=== PATIENT | female | born 1945 | race Caucasian/White ===

== ENCOUNTER 2019-06-02 14:40 | Outpatient (CLI) | payer MEDICARE, SELFPAY ==
--- NOTE | ~2019-06-02 | MM_ITS ---
EXAMINATION: MM screening [facility] BI w juan HISTORY: Screening mammogram TECHNIQUE: Craniocaudal and mediolateral oblique 3-D tomosynthesis images were obtained and synthetic 2-D images were generated. CAD analysis was submitted and interpreted. COMPARISON: Comparison to multiple prior studies sequentially, with oldest reviewed study dated 01/17. BREAST PARENCHYMAL COMPOSITION: There are scattered areas of fibroglandular density. FINDINGS: There is no evidence of suspicious mass, calcification, or architectural distortion to sugg est malignancy in either breast. There has been no suspicious interval change. IMPRESSION: 1. No mammographic evidence of malignancy. 2. Recommend routine screening mammography in one year. BI-RADS Category 1: Negative Reviewed, dictated and finalized at location A.
== END 2019-06-02 14:41 | disposition home or self-care (01) ==
PROVIDERS: PCP Nurse Practitioner Family; Visit Provider Nurse Practitioner Family
DX: Z12.31 Encounter for screening mammogram for malignant neoplasm of breast (principal)
CPT/HCPCS: 77063; 77067

== ENCOUNTER 2019-06-06 18:41 | Emergency (ER) | payer MEDICARE, SELFPAY ==
--- NOTE | 2019-06-06 18:48 | ED.RECABL ---
HPI - Recheck/Abnormal Lab/Rx General Chief Complaint: Recheck/Abnormal Lab/Rx Stated Complaint: elevated blood pressure Time Seen by Provider: 06/06/19 18:43 Source: patient Mode of arrival: ambulatory Limitations: no limitations History of Present Illness HPI narrative: The pt is a 74 y/o female who presents to the ED c/o elevated BP onset one day ago. She states that she checks her BP every day, and did not check it after taking her medication. She states that yesterday, it was 160 over another value. Pt states that she has a PMHx of HTN, and she takes Lisinopril 10 mg. The pt states that she checked her machine at home and saw her BP was 220/91. She had begun to experience N/V before this. She states that she took 2 of her Lisinopril. She denies CP, GALLEGOS, SOB, fever, and chills. complaint: other (High BP) Description of abnormal result: High blood pressure. This started one day ago. Associated symptoms: nausea and other (Vomiting) Treatments prior to arrival: other (Prescription Lisinopril ) Related Data Home Medications Medication Instructions Recorded Confirmed levothyroxine 75 mcg PO DAILY 06/06/19 lisinopril 10 mg PO BID 06/06/19 Allergies Allergy/AdvReac Type Severity Reaction Status Date / Time ampicillin AdvReac Intermediate RASH/ITCHIN Verified 06/06/19 18:54 G codeine AdvReac Intermediate OUT OF MY Verified 06/06/19 18:54 BODY Review of Systems Review of Systems: All systems reviewed & are unremarkable except as noted in HPI and below Constitutional: Constitutional: Denies chills and Denies fever(s) Cardiovascular: Cardiovascular: Denies chest pain Respiratory: Respiratory: Denies dyspnea Gastrointestinal: Gastrointestinal: Reports nausea and Reports vomiting Neurologic: Denies headache(s) [facility] Past Medical History Medical History (Updated 06/06/19 @ 20:31 by Nicole Davis MD) Asthma Bilateral cataracts Bronchitis Cystocele Fibroids Glaucoma HTN (hypertension) Hyperthyroidism Hypothyroidism Urinary incontinence UTI (urinary tract infection) Surgical History Surgical History (Updated 06/06/19 @ 18:56 by Tong Almanza) H/O lumpectomy H/O right breast biopsy H/O: hysterectomy History of bladder suspension procedure Social History Social History (Updated 06/06/19 @ 18:56 by Tong Almanza) Smoking status: Former smoker Gender identity (if verbalized by the patient): Female Comments PCP: Jennifer Rosales APPLICATION SUPPORT ADMINISTRATOR Exam Const: General: no acute distress and well developed Orientation/consciousness: oriented to person, oriented to place, oriented to time and patient oriented x3 HENMT: Head: normocephalic Ears: external ears normal General nose exam: Normal external nose present Eyes: General: appearance normal, both eyes and all related structures Conjunctivae: conjunctivae normal Neck: Neck: normal visual inspection and full ROM Chest: Chest palpation & inspection: normal inspection of the chest and no tenderness Resp: Effort & Inspection: normal respiratory effort Auscultation: clear to auscultation bilaterally Cardio: Rate: regular rate Rhythm: regular rhythm GI: GI Palp: No abdominal tenderness and Yes Soft to palpation Skin: General skin exam: normal color and turgor normal Neuro: General: oriented to person, oriented to place, oriented to time and patient oriented x3 Cognition (Neuro): normal cognition Extrem: General: normal to inspection, full ROM and no pedal edema Psych: Appearance: grossly normal Mental Status: mental status grossly normal Affect: normal affect Course Reevaluation(s) Reevaluation #1: Patient is feeling fine and is not experiencing N/V at this time. Is comfortable with discharge. Date: 06/06/19 Time: 20:31 Vital Signs Vital signs: Vital Signs Temperature 36.6 C 06/06/19 18:52 Pulse Rate 86 06/06/19 18:52 Respiratory Rate 14 06/06/19 18:52 Blood Pressure 220/113 H 06/06/19 18:52 Pulse Oximet
[2019-06-06 18:52] VITALS: BP 220/113; PULSE 86; RESP 14; TEMP 36.6; O2SAT 100
--- NOTE | 2019-06-06 19:10 | ECG_ITS ---
Measurements Intervals [place] Rate: 81 P: 33 MS: 154 QRS: 25 QRSD: 98 T: 13 QT: 363 QTc: 422 Interpretive Statements SINUS RHYTHM BORDERLINE T WAVE ABNORMALITY- INFERIOR LEADS BASELINE ARTIFACT- I, II, III, AVR, AVL, AVF BORDERLINE ECG Electronically Signed On 06-06-2019 20:15:50 CDT by Ranjit Meyers D.O.
[2019-06-06 19:13] LABS: Basophils Absolute Auto 0.1 K/mm3 (0.0-0.1); Basophils Percent Auto 0.8 % (0.2-1.2); Eosinophils Percent Auto 0.5 % (0-4.4); Hematocrit 39.4 % (37.0-47.0); Hemoglobin 13.1 g/dL (12.0-15.0); Immature Granulocyte Absolute 0.02 K/mm3 (0.00-0.031); Immature Granulocyte Percent A 0.3 % (0-0.5); Lymphocytes Absolute Auto 1.65 K/mm3 (0.9-3.2); Lymphocytes Percent Auto 26.3 % (18.3-44.2); Mean Corpuscular HGB Conc 33.2 g/dl (32-36); Mean Corpuscular Hemoglobin 31.8 pg (26-34); Mean Corpuscular Volume 95.6 fl (80-100); Mean Platelet Volume 10.2 fl (7.4-10.4); Monocytes Absolute Auto 0.5 K/mm3 (0.1-0.6); Neutrophils Percent Auto 64.1 % (45.5-73.1); Platelet Count Result 298 k/mm3 (150-375); Red Blood Count 4.12 M/mm3 (4.2-5.4); Red Cell Distribution Width 12.2 % (11.5-14.5); White Blood Count 6.3 K/mm3 (4.5-10.0)
[2019-06-06 19:37] LABS: Troponin I < 0.012 ng/mL (0.000-0.034)
[2019-06-06 19:48] VITALS: BP 171/76; PULSE 70; RESP 11; O2SAT 99
[2019-06-06 20:05] LABS: Alanine Aminotransferase 23 U/L (4-35); Albumin Level 4.4 g/dL (3.5-5.1); Alkaline Phosphatase 87 U/L (38-126); Aspartate Amino Transferase 31 U/L (14-36); Bilirubin,Total 0.3 mg/dL (0.2-1.3); Blood Urea Nitrogen 9 mg/dL (7-17); Calcium 9.6 mg/dL (8.4-10.2); Carbon Dioxide 30 mmol/L (22-30); Chloride 98 mmol/L (98-107); Estimated CRCL calculation 46 ml/min; Estimated Glomerular Filt Rate > 60; Glucose 109 mg/dL (65-105); Lipase 132 U/L (23-300); Potassium 4.2 mmol/L (3.4-5.0); Sodium 133 mmol/L (137-145)
[2019-06-06 20:40] VITALS: BP 173/83; PULSE 71; RESP 18; TEMP 36.2; O2SAT 100
== END 2019-06-06 20:42 | disposition home or self-care (01) ==
PROVIDERS: Emergency Provider Emergency Medicine; PCP Nurse Practitioner Family
DX: I10 Essential (primary) hypertension (principal); R11.0 Nausea; E03.9 Hypothyroidism, unspecified; H40.9 Unspecified glaucoma; Z87.440 Personal history of urinary (tract) infections; H26.9 Unspecified cataract; Z87.891 Personal history of nicotine dependence; R94.31 Abnormal electrocardiogram [ECG] [EKG]
CPT/HCPCS: 36415; 80053; 83690; 84484; 85025; 93005; 99284

== ENCOUNTER 2020-07-19 08:11 | Outpatient (CLI) | payer MEDICARE, SELFPAY ==
--- NOTE | ~2020-07-19 | MM_ITS ---
EXAMINATION: MM screening [facility] BI w juan HISTORY: Screening TECHNIQUE: Craniocaudal and mediolateral oblique 3-D tomosynthesis images were obtained and synthetic 2-D images were generated. CAD analysis was submitted and interpreted. COMPARISON: Comparison to multiple prior studies sequentially, with oldest reviewed study dated 01/18. BREAST PARENCHYMAL COMPOSITION: There are scattered areas of fibroglandular density. FINDINGS: There are developing skin calcifications in the lower central aspect of the right breast an d lower inner quadrant of the right breast corresponding to focal skin keratosis indicated with radio paque markers. There is no evidence of suspicious mass, calcification, or architectural distortion to suggest malignancy in either breast. There has been no suspicious interval change. IMPRESSION: 1. No mammographic evidence of malignancy. 2. Recommend routine screening mammography in one year. BI-RADS Category 2: Benign finding(s). Reviewed, dictated and finalized at location A.
== END 2020-07-19 08:12 | disposition home or self-care (01) ==
LOC: ANHIMG 08:15
PROVIDERS: PCP Nurse Practitioner Family; Visit Provider Nurse Practitioner Family
DX: Z12.31 Encounter for screening mammogram for malignant neoplasm of breast (principal)
CPT/HCPCS: 77063; 77067

== ENCOUNTER → 2020-09-27 10:55 | Outpatient (CLI) | payer MEDICARE, SELFPAY ==
--- NOTE | ~2020-09-27 | DEXA_ITS ---
Bone Density Report Name: Elham Crane Age: 75 Sex: Female Ethnicity: White Date of : 1945 Indication: postmenopausal; screening for osteoporosis; height loss; hysterectomy; Referring Provider: Bobby, Jennifer Kovacs Study: Bone densitometry was performed. Exam Date: September 27, 2020 Accession number: [id number] Bone Density: Region BMD T-score Z-score Classification AP Spine (L1-L4) 1.107 0.5 3.1 Normal Femoral Neck (Left) 0.743 -1.0 1.2 Normal Total Hip (Left) 0.888 -0.4 1.5 Normal Femoral Neck (Right) 0.767 -0.7 1.4 Normal Total Hip (Right) 0.902 -0.3 1.6 Normal Total Hip Mean 0.895 -0.4 1.6 Normal World Health Organization criteria for BMD impression classify patients as: Normal (T-score at or above -1.0), Osteopenia (T-score between -1.0 and -2.5), or Osteoporosis (T-score at or below -2.5). 10-year Fracture Risk: FRAX not reported because: All T-scores for Spine Total, Hip Total, Femoral Neck at or above -1.0 Previous Exams: Region Exam Age BMD T-score BMD Change BMD Change Date g/cm2 vs Baseline vs Previous AP Spine(L1-L4) 09/27/2020 75 1.107 0.5 0.066* 0.066* 01/07/2007 61 1.041 -0.1 Total Hip(Left) 09/27/2020 75 0.888 -0.4 -0.076* -0.076* 01/07/2007 61 0.964 0.2 Total Hip(Right) 09/27/2020 75 0.902 -0.3 -0.053* -0.053* 01/07/2007 61 0.955 0.1 *Denotes significance at 95% confidence level, LSC for AP Spine = 0.022 g/cm2, LSC for Total Hip = 0.027 g/cm2 Clinical Information Provided by Patient: Has used the following medications: Vitamin D, Calcium, MTV Has the following medical conditions: Hysterectomy Patient maximum height was 62.5 Menopause Age: 48 Drinks caffeinated beverages Onset of menses at age 11 Number of children 2 Impression: The patient has normal bone mass. The BMD for the Total Hip(Left) decreased, changing by -0.076 since the last DXA exam. The BMD for the Total Hip(Right) decreased, changing by -0.053 since the last DXA exam. Discussion: BONE DENSITY IS ABOVE THE MINIMUM DESIRABLE LEVEL AT ALL SKELETAL SITES TESTED. This patient?s bone mineral density is above the minimum desirable level (T-score -1.0 or better) at all sites measured. The patient should follow a healthful lifestyle (good nutrition with adequate calcium and vitamin D, and appropriate weight-bearing exercise). Follow-Up: Consider repeating this study in 3 to 4 years to reas
== END ==
PROVIDERS: PCP Nurse Practitioner Family; Visit Provider Nurse Practitioner Family
DX: Z78.0 Asymptomatic menopausal state (principal)
CPT/HCPCS: 77080

== ENCOUNTER 2021-09-13 11:05 | Outpatient (CLI) | payer MEDICARE, SELFPAY ==
--- NOTE | ~2021-09-13 | MM_ITS ---
EXAMINATION: MM screening [facility] BI w juan HISTORY: Screening TECHNIQUE: Craniocaudal and mediolateral oblique 3-D tomosynthesis images were obtained and synthetic 2-D images were generated. CAD analysis was submitted and interpreted. COMPARISON: Comparison to multiple prior studies sequentially, with oldest reviewed study dated 01/18. BREAST PARENCHYMAL COMPOSITION: There are scattered areas of fibroglandular density. FINDINGS: There is no evidence of suspicious mass, calcification, or architectural distortion to sugg est malignancy in either breast. There has been no suspicious interval change. IMPRESSION: 1. No mammographic evidence of malignancy. 2. Recommend routine screening mammography in one year. BI-RADS Category 1: Negative Reviewed, dictated and finalized at location A.
== END 2021-09-13 11:06 | disposition home or self-care (01) ==
PROVIDERS: PCP Nurse Practitioner Family; Visit Provider Nurse Practitioner Family
DX: Z12.31 Encounter for screening mammogram for malignant neoplasm of breast (principal)
CPT/HCPCS: 77063; 77067

== ENCOUNTER 2022-12-14 13:57 | Outpatient (CLI) | payer MEDICARE, SELFPAY ==
--- NOTE | ~2022-12-14 | MM_ITS ---
EXAMINATION: MM screening [facility] BI w juan HISTORY: Screening mammogram TECHNIQUE: Craniocaudal and mediolateral oblique 3-D tomosynthesis images were obtained and synthetic 2-D images were generated. CAD analysis was submitted and interpreted. COMPARISON: 09/13/2021, 08/05/2020, 06/02/2019 bilateral screening mammogram examinations BREAST PARENCHYMAL COMPOSITION: There are scattered areas of fibroglandular density. FINDINGS: There is no evidence of suspicious mass, calcification, or architectural distortion to sugg est malignancy in either breast. There has been no suspicious interval change. IMPRESSION: 1. No mammographic evidence of malignancy. 2. Recommend routine screening mammography in one year. BI-RADS Category 1: Negative Reviewed, dictated and finalized at location A.
== END 2022-12-14 13:58 | disposition home or self-care (01) ==
PROVIDERS: PCP Nurse Practitioner Family; Visit Provider Nurse Practitioner Family
DX: Z12.31 Encounter for screening mammogram for malignant neoplasm of breast (principal)
CPT/HCPCS: 77063; 77067

== ENCOUNTER 2023-01-08 15:41 | Observation (INO) | payer MEDICARE, SELFPAY ==
[2023-01-08] VITALS (7 sets, daily range): BP systolic 156–218; BP diastolic 79–126; PULSE 78–94; RESP 16–18; TEMP 36.5–36.8; O2SAT 99–100; BMI 27.5
--- NOTE | ~2023-01-08 | MR_ITS ---
MRI of the brain Clinical History: Weakness, incoordination Technique: Axial and sagittal T1-weighted images were acquired. These were followed by axial T2-weigh dorinda, diffusion weighted, gradient, and FLAIR images. Following intravenous administration of 13 cc Mu ltiHance gadolinium, T1-weighted fat-sat imaging was performed in the axial and coronal planes. Findings: There is no acute infarct, intracranial hemorrhage, or mass lesion. There are moderate [place] hayde microvascular ischemic changes in the periventricular white matter bilaterally. Focal chronic lac unar infarcts are noted at the left basal ganglia/external capsule. Ventricles and subarachnoid spaces are minimally prominent. Orbits are unremarkable. Paranasal sinuse s and mastoid air cells are clear. Major intracranial flow voids are intact. Sagittal midline structures are intact. No abnormal postcontrast enhancement identified. IMPRESSION: No intracranial hemorrhage, mass lesion, or acute infarct. Moderate chronic microvascular ischemic changes and chronic lacunar infarcts at the left basal gangli a/external capsule. Reviewed, dictated and finalized at [facility]. IMPRESSION: No intracranial hemorrhage, mass lesion, or acute infarct. Moderate chronic microvascular ischemic changes and chronic lacunar infarcts at the left basal ganglia/external capsule.
--- NOTE | ~2023-01-08 | CT_ITS ---
EXAMINATION: CTA brain carotid DATE: 01/08/2023 17:59 INDICATION: weakness TECHNIQUE: Computed tomographic angiography (CTA) of the head was performed without and with 100 mL O mnipaque-350 intravenous contrast. CTA of the neck was performed with intravenous contrast. Automated exposure control and iterative reconstruction technique were employed. The dose-length product was 1 639.38 mGy-cm. Maximum intensity projection and volume rendered 3D-reconstructions were created by magen murillo technologist on a separate workstation. COMPARISON: None. FINDINGS: CT BRAIN: No acute large vessel infarct, intracranial hemorrhage, mass, or hydrocephalus. Moderate atrophy and chronic white matter change. Atherosclerotic intracranial calcification. Old bilateral lacunar infarc ts. Bilateral lens replacements. CTA HEAD: No large vessel occlusion, aneurysm, high flow vascular malformation, nidus or extravasation. Multifo dorothy mild and moderate stenoses present in the distal left vertebral artery and basilar artery. Hypopl astic/absent intradural segment of the right vertebral artery versus variant termination in a right c erebellar artery. Atherosclerotic calcification in the carotid siphons without significant stenosis. Moderate stenosis in the left A2 segment. Hypoplastic left P1 segment. Absent right P1 segment, with flow provided from the right PCOM. Diminutive caliber posterior cerebral arteries bilaterally. Symmet alfa parenchymal enhancement. Patent cerebral veins. CTA NECK: Aortic arch and proximal great vessels: Mild atherosclerotic calcifications at the visualized aortic arch and proximal great vessels. Right common carotid, carotid bifurcation, and internal carotid artery: Calcified plaque at the bifur cation.There is 0% stenosis of the proximal right internal carotid artery relative to normal distal a rtery lumen diameter (NASCET criteria). Left common carotid, carotid bifurcation, and internal carotid artery: Calcified plaque at the bifurc ation.There is 0% stenosis of the proximal left internal carotid artery relative to normal distal art noah lumen diameter (NASCET criteria). Vertebral arteries: No significant plaque or stenosis. Left vertebral artery is dominant Hypoplastic right vertebral artery with minimal opacification. Other findings: Biapical pleural scar. Dependent atelectasis. Senescent and likely mild interstitial or bronchiolitic change. IMPRESSION: No CT evidence of acute large vessel infarct. No large vessel occlusion. No severe carotid or vertebral stenosis. Reviewed, dictated and finalized at location [facility].
--- NOTE | 2023-01-08 16:03 | ECG_ITS ---
Measurements Intervals [place] Rate: 79 P: 38 NC: 147 QRS: -5 QRSD: 90 T: 3 QT: 386 QTc: 444 Interpretive Statements SINUS RHYTHM COMPARED TO ECG 06/06/2019 18:50:00 NO SIGNIFICANT CHANGES Electronically Signed On 01-09-2023 19:45:29 CDT by Lisbeth Coates M.D.
--- NOTE | 2023-01-08 16:04 | ED.GENADULT ---
HPI - General Adult General Chief complaint: Neuro Symptoms/Deficit <Oxana Oliveira APRN - Last Filed: 01/08/23 16:07> Stated complaint: difficulty with R hand/leg today <Oxana Oliveira APRN - Last Filed: 01/08/23 16:07> Time Seen by Provider: 01/08/23 17:00 <Oxana Oliveira APRN - Last Filed: 01/08/23 16:07> Source: patient <DENISE Cruz Last Filed: 01/08/23 19:59> Mode of arrival: ambulatory <Susana Delatorre PA-C - Last Filed: 01/08/23 19:59> Limitations: no limitations <DENISE Cruz Last Filed: 01/08/23 19:59> History of Present Illness HPI narrative: Elham Crane is a 77 y/o female who presents with reports of noticing she couldn't use her right arm this morning at around 0830, she states she then rested and it got better. She said later in the day her symptoms returned and she had weakness to her right arm and had to drag her right leg. She states the symptoms have since again improved. <Oxana Oliveira APRN - Last Filed: 01/08/23 16:07> Elham Crane is a 77 y/o female who presents with reports of noticing she couldn't use her right arm this morning at around 0830, she states she then rested and it got better. She said later in the day her symptoms returned and she had weakness to her right arm and had to drag her right leg. She states the symptoms have since again improved. Reports symptoms have been intermittent throughout the day. Last known well just before 8:30 AM. Denies any headache, vision changes, dizziness, lightheadedness, chest pain, difficulty breathing, nausea, vomiting, confusion, slurred speech, numbness, tingling. <DENISE Cruz Last Filed: 01/08/23 19:59> Related Data Home medications: Home Medications Medication Instructions Recorded Confirmed lisinopril 10 mg tablet 20 mg PO HS 06/06/19 01/08/23 fenofibrate 160 mg tablet 160 mg PO DAILY 01/08/23 01/08/23 levothyroxine 88 mcg tablet 88 mcg PO QAM 01/08/23 01/08/23 (Synthroid) <Oxana Oliveira, INFECTION CONTROL PREVENTIONIST - Last Filed: 01/08/23 16:07> Allergies/adverse reactions: Allergies Allergy/AdvReac Type Severity Reaction Status Date / Time ampicillin AdvReac Intermediate RASH/ITCHIN Verified 06/06/19 18:54 G codeine AdvReac Intermediate OUT OF MY Verified 06/06/19 18:54 BODY <Oxana Marshall July, INFECTION CONTROL PREVENTIONIST - Last Filed: 01/08/23 16:07> Review of Systems Review of Systems: CONSTITUTIONAL: Denies fever, chills, or sweats. EYES: Denies visual changes. CARDIOVASCULAR: Denies chest pain. RESPIRATORY: Denies dyspnea. GASTROINTESTINAL: Denies abdominal pain, nausea, vomiting. MUSCULOSKELETAL: Denies back pain, joint pain, or myalgia. NEUROLOGIC: See HPI. <Susana Delatorre PA-C - Last Filed: 01/08/23 19:59> All systems reviewed & are unremarkable except as noted in HPI and below <Susana Delatorre PA-C - Last Filed: 01/08/23 19:59> PMFSH Past Medical History Medical History: Medical History (Updated 01/09/23 @ 02:08 by Luís Parekh MD) Asthma Bilateral cataracts Bronchitis Cystocele Fibroids Glaucoma HTN (hypertension) Hyperthyroidism Hypothyroidism Urinary incontinence UTI (urinary tract infection) <Oxana Marshall July, - Last Filed: 01/08/23 16:07> Surgical History Surgical History: Surgical History H/O lumpectomy H/O right breast biopsy H/O: hysterectomy History of bladder suspension procedure <Oxana Marshall July, INFECTION CONTROL PREVENTIONIST - Last Filed: 01/08/23 16:07> Social History Social History: Social History Smoking status: Former smoker Alcohol intake: never Substance use: never Lack of Transportation: No Lack of Food: Never True Current Housing: I Have Housing Concerned About Future Housing: No Difficulty Paying Gas/Electric Bills: No Difficulty Paying for Meds: No Currently Unemployed:
[2023-01-08 16:58] LABS: Basophils Absolute Auto 0.1 K/mm3 (0.0-0.1); Basophils Percent Auto 0.8 % (0.2-1.2); Eosinophils Absolute Auto 0.1 K/mm3 (0-0.3); Eosinophils Percent Auto 1.4 % (0-4.4); Hematocrit 38.8 % (37.0-47.0); Hemoglobin 12.2 g/dL (12.0-15.0); Immature Granulocyte Absolute 0.02 K/mm3 (0.00-0.031); Immature Granulocyte Percent A 0.3 % (0-0.5); Lymphocytes Absolute Auto 1.83 K/mm3 (0.9-3.2); Mean Corpuscular HGB Conc 31.4 g/dl (32-36); Mean Corpuscular Hemoglobin 31.1 pg (26-34); Mean Platelet Volume 10.4 fl (7.4-10.4); Monocytes Absolute Auto 0.6 K/mm3 (0.1-0.6); Monocytes Percent Auto 9.5 % (2.6-8.5); Neutrophils Absolute Auto 3.7 K/mm3 (1.3-6.7); Platelet Count Result 307 k/mm3 (150-375); Red Blood Count 3.92 M/mm3 (4.2-5.4); Red Cell Distribution Width 12.7 % (11.5-14.5); White Blood Count 6.3 K/mm3 (4.5-10.0)
--- NOTE | 2023-01-08 17:02 | ED.NEUROSD ---
HPI - Neuro Symptoms/Deficit General Chief Complaint: Neuro Symptoms/Deficit Stated Complaint: difficulty with R hand/leg today Time Seen by Provider: 01/08/23 17:00 Source: patient Related Data Home Medications Medication Instructions Recorded Confirmed levothyroxine 75 mcg tablet 75 mcg PO DAILY 06/06/19 lisinopril 10 mg tablet 10 mg PO BID 06/06/19 Allergies Allergy/AdvReac Type Severity Reaction Status Date / Time ampicillin AdvReac Intermediate RASH/ITCHIN Verified 06/06/19 18:54 G codeine AdvReac Intermediate OUT OF MY Verified 06/06/19 18:54 BODY PMFSH Past Medical History Medical History (Updated 06/07/19 @ 00:00 by Gi Whittington) Asthma Bilateral cataracts Bronchitis Cystocele Fibroids Glaucoma HTN (hypertension) Hyperthyroidism Hypothyroidism Urinary incontinence UTI (urinary tract infection) Surgical History Surgical History (Updated 06/06/19 @ 18:56 by Tong Almanza) H/O lumpectomy H/O right breast biopsy H/O: hysterectomy History of bladder suspension procedure Social History Social History (Updated 06/06/19 @ 18:56 by Tong Almanza) Smoking status: Former smoker Gender identity (if verbalized by the patient): Female Course Vital Signs Vital signs: Vital Signs Temperature 97.7 F 01/08/23 15:56 Pulse Rate 88 01/08/23 15:56 Respiratory Rate 18 01/08/23 15:56 Blood Pressure 161/104 H 01/08/23 15:56 Pulse Oximetry 99 01/08/23 15:56 Temperature 97.7 F 01/08/23 15:56 Pulse Rate 87 01/08/23 16:02 Respiratory Rate 18 01/08/23 15:56 Blood Pressure 161/104 H 01/08/23 15:56 Pulse Oximetry 99 01/08/23 15:56 MDM - Neuro Symptoms/Deficit Lab Data 01/08/23 16:48 01/08/23 16:49 Labs: Lab Results 01/08/23 01/08/23 Range/Units 16:48 16:49 WBC 6.3 (4.5-10.0) K/mm3 RBC 3.92 L (4.2-5.4) M/mm3 Hgb 12.2 (12.0-15.0) g/dL Hct 38.8 (37.0-47.0) % MCV 99.0 (80-100) fl MCH 31.1 (26-34) pg MCHC 31.4 L (32-36) g/dl RDW 12.7 (11.5-14.5) % Plt Count 307 (150-375) k/mm3 MPV 10.4 (7.4-10.4) fl Immature Gran % (Auto) 0.3 (0-0.5) % Neut % (Auto) 59.0 (45.5-73.1) % Lymph % (Auto) 29.0 (18.3-44.2) % [place] % (Auto) 9.5 H (2.6-8.5) % Eos % (Auto) 1.4 (0-4.4) % Baso % (Auto) 0.8 (0.2-1.2) % Lymph # (Auto) 1.83 (0.9-3.2) K/mm3 [place] # (Auto) 0.6 (0.1-0.6) K/mm3 Eos # (Auto) 0.1 (0-0.3) K/mm3 Baso # (Auto) 0.1 (0.0-0.1) K/mm3 Abs Immat Gran (auto) 0.02 (0.00-0.031) K/mm3 Absolute Neuts (auto) 3.7 (1.3-6.7) K/mm3 Absolute Nucleated RBC 0.0 (0.0-0.012) K/mm3 Nucleated RBC % 0.0 (0.0-0.2) % PT Pending INR Pending APTT Pending Sodium Pending Potassium Pending Chloride Pending Carbon Dioxide Pending Anion Gap Pending BUN Pending Creatinine Pending Estim Creat Clear Calc Pending Estimated GFR Pending Glucose Pending Calcium Pending Total Bilirubin Pending AST Pending ALT Pending Alkaline Phosphatase Pending Troponin I Pending Total Protein Pending Albumin Pending Ethyl Alcohol Pending Discharge Plan Discharge Prescriptions: No Action levothyroxine 75 mcg tablet 75 mcg PO DAILY lisinopril 10 mg tablet 10 mg PO BID Follow-up/Referrals: Bobby,Jennifer Kovacs, TONE REGULATOR- [Primary Care Provider] -
[2023-01-08 17:08] LABS: INR 0.9; Partial Thromboplastin Time 25.2 SECONDS (22.3-36.8); Prothrombin Time 12.8 Seconds (11.1-14.7)
[2023-01-08 17:09] LABS: Alanine Aminotransferase 23 U/L (6-35); Albumin Level 4.5 g/dL (3.5-5.1); Alkaline Phosphatase 71 U/L (38-126); Anion Gap 4 mmol/L (8-16); Aspartate Amino Transferase 37 U/L (14-36); Bilirubin,Total 0.4 mg/dL (0.2-1.3); Blood Urea Nitrogen 15 mg/dL (7-17); Calcium 9.4 mg/dL (8.4-10.2); Carbon Dioxide 31 mmol/L (22-30); Chloride 103 mmol/L (98-107); Estimated Glomerular Filt Rate > 60; Glucose 113 mg/dL (65-110); Potassium 3.6 mmol/L (3.4-5.0); Sodium 138 mmol/L (137-145)
[2023-01-08 17:09] LABS: Ethanol < 10 mg/dL (<10)
[2023-01-08 17:21] LABS: Troponin I < 0.012 ng/mL (0.000-0.034)
[2023-01-08] MEDS: ASPIRIN 81 MG CHEWABLE TABLET 243 MG PO (18:26)
[2023-01-08 18:53] LABS: Appearance Urine Clear (Clear); Bacteria Urine 4+ /hpf; Bilirubin Urine Negative (Negative); Blood Urine Negative (Negative); Color Urine Yellow (Yellow); Glucose Urine UA Negative (Negative); Ketones Urine Negative (Negative); Leukocyte Esterase Ur 2+ LEU/UL (Negative); Nitrate Urine Negative (Negative); Non Pathogenic Casts 0-2; Protein Urine Negative (Negative); RBC Urine 0-2 /hpf (0-2); Specific Grav Ur 1.007 (1.001-1.035); Squamous Epithelial Cell Urine None seen /hpf (Few); Urobilinogen Urine 0.2 mg/dL (<2.0)
[2023-01-08 18:57] LABS: Add Urine Microscopic? YES
--- NOTE | 2023-01-08 19:33 | PM.IMHP ---
H&P: HPI History of Present Illness Date/Time: 01/08/23 19:33 Chief Complaint: RUE weakness. Narrative: This is a 77-year-old female with past medical history significant for dyslipidemia hypothyroidism hypertension. Patient presents to the emergency room due to right upper extremity weakness denies any vision changes, headaches, dizziness, lightheadedness, syncope, near syncope, headaches, chest pain, nausea vomiting diarrhea fevers, chills, cough, sputum production, pain or burning with urination, generalized weakness. Patient denies any speech disturbance as well denies any drooling or drooping of the face this was on and off for several hours during the day 1st started early in the morning at around 8:00 a.m. 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 Preliminary workup was significant for urinalysis with numerous WBCs present. EXAMINATION: CTA brain carotid DATE: 01/08/2023 17:59 INDICATION: weakness TECHNIQUE: Computed tomographic angiography (CTA) of the head was performed without and with 100 mL Omnipaque-350 intravenous contrast. CTA of the neck was performed with intravenous contrast. Automated exposure control and iterative reconstruction technique were employed. The dose-length product was 1639.38 mGy-cm. Maximum intensity projection and volume rendered 3D-reconstructions were created by the technologist on a separate workstation. COMPARISON: None. FINDINGS: CT BRAIN: No acute large vessel infarct, intracranial hemorrhage, mass, or hydrocephalus. Moderate atrophy and chronic white matter change. Atherosclerotic intracranial calcification. Old bilateral lacunar infarcts. Bilateral lens replacements. CTA HEAD: No large vessel occlusion, aneurysm, high flow vascular malformation, nidus or extravasation. Multifocal mild and moderate stenoses present in the distal left vertebral artery and basilar artery. Hypoplastic/absent intradural segment of the right vertebral artery versus variant termination in a right cerebellar artery. Atherosclerotic calcification in the carotid siphons without significant stenosis. Moderate stenosis in the left A2 segment. Hypoplastic left P1 segment. Absent right P1 segment, with flow provided from the right PCOM. Diminutive caliber posterior cerebral arteries bilaterally. Symmetric parenchymal enhancement. Patent cerebral veins. CTA NECK: Aortic arch and proximal great vessels: Mild atherosclerotic calcifications at the visualized aortic arch and proximal great vessels. Right common carotid, carotid bifurcation, and internal carotid artery: Calcified plaque at the bifurcation.There is 0% stenosis of the proximal right internal carotid artery relative to normal distal artery lumen diameter (NASCET criteria).? Left common carotid, carotid bifurcation, and internal carotid artery: Calcified plaque at the bifurcation.There is 0% stenosis of the proximal left internal carotid artery relative to normal distal artery lumen diameter (NASCET criteria). Vertebral arteries: No significant plaque or stenosis. Left vertebral artery is dominant Hypoplastic right vertebral artery with minimal opacification. Other findings: Biapical pleural scar. Dependent atelectasis. Senescent and likely mild interstitial or bronchiolitic change. IMPRESSION: No CT evidence of acute large vessel infarct. No large vessel occlusion. No severe carotid or vertebral stenosis. Review of Systems Review of Systems: Right upper extremity weakness Constitutional: Constitutional: Denies chills, Denies fatigue, Denies fever(s), Denies frequent falls, Denies headache(s), Denies malaise, Denies poor appetite and Denies weakness Eyes: Eyes: Denies change in vision ENT: Denies dysphagia, Denies vertigo, Denies dizziness, Denies nasal obstruction and Denies odynophagia Cardiovascular: Cardiovascular: Denies chest pain, Denies lightheadedness, Denies radiating jaw, neck or arm pain and Denies palpitations Respiratory: Respiratory:
[2023-01-08] MEDS: lisinopriL 20 MG TABLET PO (20:27)
[2023-01-08] MEDS: levoFLOXacin 750 MG/D5W 150 ML 750 MG/150 ML BAG 100 MG IVPB (20:28)
[2023-01-08 20:44] LABS: Magnesium 2.1 mg/dL (1.6-2.3)
--- NOTE | 2023-01-08 21:57 | ADMGEN ---
This patient, Elham Crane, was admitted to [facility] Surg Room 306-02. Patient/family oriented to hospital policies and general routines including ID bracelet, bed and alarms, visiting hours, pain management, procedures, bathroom and other care routines, personal items, smoking policy, room service/diet, and visiting hours. Information on how to activate the Rapid Response Team has been discussed. Patient/Family are encouraged to report perceived risks to care and to ask questions if they do not understand what they are told or what they should do.
[2023-01-09] VITALS: PULSE 84
--- NOTE | 2023-01-09 | ECHO_ITS ---
Patient Info Name: Elham Crane Age: 77 years : 1945 Gender: Female Ht: 62 in Wt: 148 lbs BSA: 1.73 m2 HR: 69 bpm BP: 199 / 83 mmHg Heart Rhythm: Sinus Rhythm Technical Quality: Good Exam Date: 01/09/2023 11:23 AM Exam Location: [facility] Patient Status: Outpatient Admit Date: 01/08/2023 Staff Ordering Physician: Luís Parekh MD Labeling Associate: Barney Ratliff RDCS Attending Provider: Luís Parekh MD Referring Physician: Iglesia BENOIT; Exam Type: CA echo doppler color flow Study Info Indications - Hand weakness Complete two-dimensional, color flow and Doppler transthoracic echocardiogram is performed. Summary 1. Complete two-dimensional, color flow and Doppler transthoracic echocardiogram is performed. 2. Normal left ventricular size with moderate concentric hypertrophy. Hyperdynamic left ventricular systolic function with ejection fraction greater than 70%. Grade 1 diastolic dysfunction is present. 3. Left atrial chamber dimension is mildly enlarged. 4. There is mild tricuspid valve regurgitation. 5. Mild pulmonary hypertension, estimated pulmonary arterial systolic pressure is 36 mmHg. 6. Normal sinus rhythm. Left Ventricle Left ventricular chamber dimension is normal. Left ventricular systolic function is hyperdynamic, estimated at >70%. There is moderately increased left ventricular wall thickness. Left ventricular septal wall motion is normal. The left ventricular diastolic function is grade I diastolic dysfunction. Right Ventricle Right ventricular chamber dimension is normal. Right ventricular systolic function is normal. Left Atria Left atrial chamber dimension is mildly enlarged. Right Atria Right atrial chamber dimension is normal. Aortic Valve The aortic valve is trileaflet. There is no aortic valve sclerosis. There is no aortic valve stenosis. There is no aortic valve regurgitation. Pulmonic Valve The pulmonic valve is normal. There is no pulmonic valve stenosis. There is trace pulmonic regurgitation. Mitral Valve The mitral valve has normal leaflets. There is no mitral valve stenosis. There is trace mitral valve regurgitation. Tricuspid Valve The tricuspid valve leaflets are normal. There is no significant tricuspid valve stenosis. There is mild tricuspid valve regurgitation. Mild pulmonary hypertension, estimated pulmonary arterial systolic pressure is 36 mmHg. Pericardium/Pleural The pericardium appears normal. There is no pericardial effusion. Inferior Vena Cava Normal inferior vena cava with >50% collapse upon inspiration consistent with Empty right atrial pressure, 10 mmHg. Aorta The aortic root size at the sinus of Valsalva is normal. The prox ascending aorta size is normal. Left Ventricular Outflow Tract Name Value Normal LVOT 2D LVOT Diameter 1.9 cm LVOT Doppler LVOT Peak Gradient 3 mmHg LVOT Mean Gradient 2 mmHg LVOT VTI 28 cm LVOT VTI/AV VTI Ratio 1.0 LVOT Stroke Volume 80 ml LVOT CO 12.1 l/min LVOT CI
[2023-01-09 00:45] VITALS: BP 199/83
[2023-01-09 04:00] VITALS: PULSE 69
[2023-01-09 06:00] VITALS: BP 168/97; PULSE 98; RESP 16; TEMP 36.4; O2SAT 94
[2023-01-09] MEDS: LEVOTHYROXINE SODIUM 88 MCG TABLET PO (06:04)
[2023-01-09] MEDS: FENOFIBRATE 160 MG TABLET PO (09:06)
--- NOTE | 2023-01-09 10:58 | WPDNEURCNPN ---
Assessment and Plan Assessment and plan (1) TIA (transient ischemic attack): Code(s): G45.9 - Transient cerebral ischemic attack, unspecified Status: Acute Plan TIA with normal neurological exam at this particular time and with negative evaluation up until now patient will be continued on aspirin 81 mg daily along with the coverage for the hypertension. Consult date: 01/09/23 HPI: Elham Crane is a 77 year old female Has been admitted to the hospital through the emergency room for the complaints of inability to use her right upper extremity when she woke up in the morning around 8:30 a.m. Subsequently the symptomatology got better but again returned when she had to drag her right lower extremity as well he reported that symptoms have been recurring intermittently throughout the day. She has been taking levothyroxine 75 micro g daily, lisinopril 10 mg twice a day, she is allergic to ampicillin and codeine and she has ongoing history of bronchial asthma, hypertension, hypothyroidism, on initial examination in the emergency room she was found to have no focal deficit her vital signs were normal except the blood pressure 161/1 0 4, routine lab studies were normal CTA of the head and neck revealed no involvement of any large vessel, and EKG was without atrial fibrillation he was admitted to the hospital with the diagnosis of TIA. Other investigations include MRI of the brain which is normal. Review of Systems Review of Systems: All systems reviewed & are unremarkable except as noted in HPI and below PMFSH Past Medical History Medical History (Updated 01/09/23 @ 02:08 by Luís Parekh MD) Asthma Bilateral cataracts Bronchitis Cystocele Fibroids Glaucoma HTN (hypertension) Hyperthyroidism Hypothyroidism Urinary incontinence UTI (urinary tract infection) Surgical History Surgical History H/O lumpectomy H/O right breast biopsy H/O: hysterectomy History of bladder suspension procedure Social History Social History Smoking status: Former smoker Alcohol intake: never Substance use: never Lack of Transportation: No Lack of Food: Never True Current Housing: I Have Housing Concerned About Future Housing: No Difficulty Paying Gas/Electric Bills: No Difficulty Paying for Meds: No Currently Unemployed: No Education: Trade/Vocational Certificate Difficulty w/ Childcare or Family Care: No Gender identity (if verbalized by the patient): Female Spiritual care concerns: No Meds Home Medications and Allergies Home Medications Medication Instructions Recorded Confirmed Type lisinopril 10 mg tablet 20 mg PO HS 06/06/19 01/08/23 History fenofibrate 160 mg tablet 160 mg PO DAILY 01/08/23 01/08/23 History levothyroxine 88 mcg tablet 88 mcg PO QAM 01/08/23 01/08/23 History (Synthroid) Allergies Allergy/AdvReac Type Severity Reaction Status Date / Time ampicillin AdvReac Intermediate RASH/ITCHIN Verified 06/06/19 18:54 G codeine AdvReac Intermediate OUT OF MY Verified 06/06/19 18:54 BODY Vital Signs Vital Signs - 24 hr 01/08/23 15:56 01/08/23 16:02 01/08/23 16:30 Temperature 36.5 C Pulse Rate 88 87 78 Respiratory Rate 18 18 Blood Pressure 161/104 H 183/83 H Pulse Oximetry 99 99 Oxygen Delivery 01/08/23 17:00 01/08/23 18:45 01/08/23 20:53 Temperature Pulse Rate 80 79 80 Respiratory Rate 18 18 16 Blood Pressure 165/90 H 184/79 H 156/126 H Pulse Oximetry 99 99 99 Oxygen Delivery 01/08/23 22:36 01/08/23 22:00 01/09/23 00:45 Temperature 36.8 C Pulse Rate 94 Respiratory Rate 16 Blood Pressure 218/98 H 199/83 H Pulse Oximetry 100 Oxygen Delivery Room Air 01/09/23 00:00 01/09/23 04:00 01/09/23 06:00 Temperature 36.4 C L Pulse Rate 84 69 98 Respiratory Rate 16 Blood Pressure 168/97 H Puls
--- NOTE | 2023-01-09 12:53 | PM.DS ---
DS: Admitting Diagnosis Discharge Date 01/09/23 Admitting Diagnosis tia DS: Discharge Diagnosis Discharge Diagnosis (1) TIA (transient ischemic attack): Code(s): G45.9 - Transient cerebral ischemic attack, unspecified Status: Acute Assessment and Plan: Admit to [facility] Neurochecks q.4 MRI in the morning Echocardiogram in a.m. Supportive care continue to monitor (2) UTI (urinary tract infection): Qualifiers: Hematuria presence: without hematuria Urinary tract infection type: acute cystitis Qualified Code(s): N30.00 - Acute cystitis without hematuria Code(s): N39.0 - Urinary tract infection, site not specified Status: Acute Assessment and Plan: Will continue levofloxacin (3) Right hand weakness: Code(s): R29.898 - Other symptoms and signs involving the musculoskeletal system Status: Acute Assessment and Plan: Resolved (4) Transient right leg weakness: Code(s): R29.898 - Other symptoms and signs involving the musculoskeletal system Status: Acute Assessment and Plan: Resolved (5) HTN (hypertension): Code(s): I10 - Essential (primary) hypertension Status: Acute Assessment and Plan: Continue home med Continue to monitor DS: Summary Hospital Course Hospital Course: admitted for tia, marie negative, mri negative for acute stroke, ok for dc Time Spent with Patient Time attestation: Total time spent providing and/or coordinating discharge services: Exam Narrative: In bed in acute distress Const: General: comfortable, no acute distress, well developed, alert, awake, average body habitus and other (Well-appearing) Nutritional Appearance: average body habitus Orientation/consciousness: patient oriented x3 HENMT: Head: normal to inspection, normocephalic and atraumatic Ears: hearing grossly normal bilaterally Face/Nose/Sinus: normal facial exam Face and sinus: normal facial exam Eyes: General: appearance normal, both eyes and all related structures Pupils: Equal, round and reactive pupils present EOM: EOMs intact bilaterally Neck: Neck: full ROM, no lymphadenopathy and no JVD Thyroid: thyroid normal Lymphatic: no lymphadenopathy noted Resp: Effort & Inspection: normal respiratory effort and able to speak in complete sentences Auscultation: clear to auscultation bilaterally Cardio: Jugular venous distension: no JVD Rate: regular rate Rhythm: regular rhythm Heart sounds: S1 normal heart sound present and S2 normal heart sound present : General: Yes deferred Skin: Rashes: no rashes Wounds: no wounds Neuro: General: patient oriented x3 and CN's II-XI intact bilaterally Cranial nerves: Yes CN's II-XII intact bilaterally and Yes Equal, round and reactive pupils present Cognition (Neuro): normal cognition Speech: normal speech and No Abnormal speech present Gait exam (Neuro): Normal gait present Motor exam (neuro): 5/5 motor strength present throughout Sensory Exam: No Sensory deficit (Neuro) Extrem: General: normal to inspection, full ROM, no joint enlargement and no pedal edema DS: Data Data Completed and Pending Labs on day of discharge: Labs from last 24 hours 01/08/23 01/08/23 01/08/23 18:26 16:49 16:48 WBC 6.3 RBC 3.92 L Hgb 12.2 Hct 38.8 MCV 99.0 MCH 31.1 MCHC 31.4 L RDW 12.7 Plt Count 307 MPV 10.4 Immature Gran % (Auto) 0.3 Neut % (Auto) 59.0 Lymph % (Auto) 29.0 [place] % (Auto) 9.5 H Eos % (Auto) 1.4 Baso % (Auto) 0.8 Lymph # (Auto) 1.83 [place] # (Auto) 0.6 Eos # (Auto) 0.1 Baso # (Auto) 0.1 Abs Immat Gran (auto) 0.02 Absolute Neuts (auto) 3.7 Absolute Nucleated RBC 0.0 Nucleated RBC % 0.0 PT 12.8 INR 0.9 APTT 25.2 Sodium 138 Potassium 3.6 Chloride 103 Carbon Dioxide 31 H Anion Gap 4 L BUN 15 D Creatinine 0.80 Estim Creat Clear Calc Not Reportable Estima
[2023-01-09 14:00] VITALS: BP 192/79; PULSE 85; RESP 14; TEMP 36.2; O2SAT 100
--- NOTE | 2023-01-09 14:08 | PC.NURSE ---
informed Dr Watson of bp 192/78, added amlodipine for d/c meds. patient asymptomatic
== END 2023-01-09 14:15 | disposition home or self-care (01) ==
LOC: ANHED 19:59 → ANH3MEDSUR 20:59 → ANHIMU 01-10 07:51
PROVIDERS: Nurse Practitioner Family; Admitting Provider Internal Medicine; Emergency Provider Physician Assistant; PCP Nurse Practitioner Family; Visit Provider Chiropractor
DX: G45.9 Transient cerebral ischemic attack, unspecified (principal); N30.00 Acute cystitis without hematuria; B96.20 Unspecified Escherichia coli [E. coli] as the cause of diseases classified elsewhere; J45.909 Unspecified asthma, uncomplicated; I10 Essential (primary) hypertension; E05.90 Thyrotoxicosis, unspecified without thyrotoxic crisis or storm; I07.1 Rheumatic tricuspid insufficiency; I27.20 Pulmonary hypertension, unspecified; Z87.891 Personal history of nicotine dependence; Z79.899 Other long term (current) drug therapy
CPT/HCPCS: 36415; 70496; 70498; 70553; 80053; 80307; 81001; 83735; 84484; 85025; 85610; 85730; 87077; 87086; 87186; 93005; 93306; 96365; 99285; A9270; A9577; G0378; J1956; Q9967

== ENCOUNTER 2023-12-31 14:37 | Outpatient (CLI) | payer MEDICARE, SELFPAY ==
--- NOTE | ~2023-12-31 | MM_ITS ---
EXAMINATION: MM screening mane BI w juan HISTORY: Screening TECHNIQUE: Craniocaudal and mediolateral oblique 3-D tomosynthesis images were obtained and synthetic 2-D images were generated. CAD analysis was submitted and interpreted. COMPARISON: Comparison to multiple prior studies sequentially, with oldest reviewed study dated 04/15. BREAST PARENCHYMAL COMPOSITION: Not dense: There are scattered areas of fibroglandular density. FINDINGS: There is no evidence of suspicious mass, calcification, or architectural distortion to sugg est malignancy in either breast. There has been no suspicious interval change. IMPRESSION: 1. No mammographic evidence of malignancy. 2. Recommend routine screening mammography in one year. BI-RADS Category 1: Negative Reviewed, dictated and finalized at location [facility].
== END 2023-12-31 14:38 | disposition home or self-care (01) ==
LOC: ANHIMG 14:39
DX: Z12.31 Encounter for screening mammogram for malignant neoplasm of breast (principal)
CPT/HCPCS: 77063; 77067

== ENCOUNTER 2025-01-12 15:30 | Outpatient (CLI) | payer MEDICARE, SELFPAY ==
--- OUTSIDE RECORDS SUMMARY | 2009-12-29 11:00 | XMS_ITS | Continuity of Care Document ---
Author Organization [facility] Address [address] [facility] [address] [facility] [address] [place] [address] Phone Care Team Providers Care Security And Compliance Project Manager Name Role Phone Gera Ndiaye Unavailable Unavailable Procedures Procedure Date Office/outpatient Visit, Est Optic Nerve Head Eval IPO Reduced 15% Fundus Photography W/ Report Visual Field Examination-Professional Nadira Visual Field Examination(s) Office/outpatient Visit, Est Optic Nerve Head Eval IPO Reduced 15% Office/outpatient Visit, Est Optic Nerve Head Eval IPO Reduced 15% No Script Office/outpatient Visit, Est Optic Nerve Head Eval IPO Reduced 15% No Script Fundus Photography W/ Report Visual Field Examination-Professional Zulma -2008 Visual Field Examination(s) Office/outpatient Visit, Est Office/outpatient Visit, Est Visual Field Examination(s) Office/outpatient Visit, Est Fundus Photography W/ Report Office/outpatient Visit, Est Advance Directives Directive Yes / No Effective Date File Name No Information Encounters Encounter Description Practice Location Reason(s) For Visit Diagnoses Date Provider Providers Copied on Encounter [facility]pat [facility], [address] [place] [address] [address], [place], [place], [address], [place] tel:[phone] [facility] No Information 3-201 0 Zelda Boss. [facility] [address], [place], [place], [facility] [place] [place]. tel:[phone] Referring Provider: Gera Rush, [address] [place], [place] [address], [place], [place], [facility] [place]. tel:[phone] [facility], [address], [place], [place], [address], [place] tel:[phone] [facility] No Information Aug-0 9-201 0 Krishnasamy Nolan. [address] [place] [address] [address], [place], [place], [facility] [place]. tel:[phone] Referring Provider: Nolan milton, [address] [place], [place] [address], [place], [place], [facility] [place]. tel:[phone] [facility], [address], [place], [place], [address], [place] tel:[phone] [facility] No Information 0 7-201 0 Krishnasamy Nolan. [address] [place] [address] [address], [place], [place], [facility] [place]. tel:[phone] Referring Provider: Nolan milton, [address] [place], [place] [address], [place], [place], [facility] [place]. tel:[phone] Office/outpat ient Visit, [facility], [address], [place], [place], [address], [place] tel:[phone] [facility] No Information 7-201 0 Krishnasamy Nolan. [address] [place], [place] [address], [place], [facility] [place] [place]. tel:[phone] Office/outpat ient Visit, Est [facility], [address], [place], [place], [address], [place] tel:[phone] [facility] No Information Per-0 6-201 0 Krishnasamy Nolan. [address], [place], [address], [place]. tel:[phone] Office/outpat ient Visit, Est [facility], [address], [place], [place], [address], [place] tel:[phone] [facility] No Information Oct-2 6-200 9 Krishnasamy Nolan. [address], [place], [address], [place]. tel:[phone] Referring Provider: Nolan milton, [address], [place], [place], [facility] [place]. tel:[phone] [facility], [address], [place], [place], [address], [place] tel:[phone] [facility] No Information May-3 1-200 9 Krishnasamy Nolan. [address], [place], [address], [place]. tel:[phone] Referring Provider: Nolan milton, [address], [place], [address]. tel:[phone] [facility], [address], [place], [place], [address], [place] tel:[phone] [facility] No Information May-2 3-200 9 Krishnasamy Nolan. [address], [place], [address], [place]. tel:[phone] Referring Provider: Nolan milton, [address], [place], [address]. tel:[phone] Office/outpat ient Visit, [facility], [address], [place], [place], [address], [place] tel:[phone] [facility] No Information Aug-0 6-200 8 Krishnasamy Nolan. [address] [facility] [address], [place], [place], [facility] [place]. tel:[phone] Office/outpat ient Visit, [facility], [address], [place], [place], [address], [place] tel:[phone] [facility] No Information Mar-1 0-200 8 Krishnasamy Nolan. [address] [facility] [address], [place], [place], [facility] [place], [place]. tel:[phone] [facility], [address], [place], [place], [address], [place] tel:[phone] [facility] No Information Nov-1 2-200 7 Vanessa Polanco. [address] [facility] [place], [address], [place]. tel:[phone] Referring Provider: Collin Rush, [address] [facility] [place], [address] . tel:[phone] Office/outpat ient Visit, [facility], [address], [place], [place], [address], [place] tel:[phone] [facility] No Information Marco-0 9-200 7 Vanessa Polanco. [address], [facility] [place], [address], [place]. tel:[phone] Referring Provider: Collin Rush, [address] [place], [address] . tel:[phone] Office/outpat ient Visit, [facility], [address], [place], [place], [address], [place] tel:[phone] [facility] No Information 200 7 Kaimichelle Polanco. [address] [facility], [place], [place], [address], [place]. tel:[phone] Family History Family Member Type Diagnosis Age At Onset No Information Payers Payer name Insurance type Covered constitution party ID Authoriza tion(s) Medicare [facility] [id number] Social History Type Description Quantity Date Captured Comments Sex Female Smoking Status No Information Chief Complaint And Reason For Visit No Information Reason For Referral Reason For Referral No Information History Of Present Illness Encounter Date Complaint History Of Prese nt Illness No Information Functional Status Date Functional Assessmen t No Information Instructions Date Instruction Additional Infor mation No Information Assessments Type Assessment Date No Information Patient Care Teams Name Effective Dates (start - stop) Status Members No Information
--- NOTE | ~2025-01-12 | MM_ITS ---
EXAMINATION: MM screening mane BI w juan HISTORY: Screening TECHNIQUE: Craniocaudal and mediolateral oblique 3-D tomosynthesis images were obtained and synthetic 2-D images were generated. CAD analysis was submitted and interpreted. COMPARISON: No prior mammogram is available for comparison at this institution. BREAST PARENCHYMAL COMPOSITION: Not dense: There are scattered areas of fibroglandular density. FINDINGS: There is no evidence of suspicious mass, calcification, or architectural distortion to suggest malignancy in either breast. There has been no suspicious interval change. IMPRESSION: 1. No mammographic evidence of malignancy. 2. Recommend routine screening mammography in one year. BI-RADS Category 1: Negative Reviewed, dictated and finalized at location B.
--- OUTSIDE RECORDS SUMMARY | 2025-01-12 16:59 | XMS_ITS | Clinical Summary ---
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 This disclosure is being madepursuant to the Care Everywhere program and may not contain all information available regarding this patient. Last updated 17.[facility] Social History Tobacco Use Types Packs/Day Years Used Date Smoking Tobacco: Never Assessed Comments Unknown Sex and Gender Information Value Date Recorded Sex Assigned at Not on file Legal Sex Female 6:00 PM CDT Gender Identity Not on file Sexual Orientation Not on file Plan of Treatment Health Maintenance Due Date Last Done Comments BONE DENSITY TESTING 1945 DTAP/TDAP/TD VACCINES (1 - Tdap) 05/26/1962 PNEUMOCOCCAL VACCINE 50+ (1 of 1 - PCV) 05/26/1993 ZOSTER VACCINE (1 of 2) 05/26/1993 Respiratory Syncytial Virus (RSV) Vaccine Pt: or over 60 yrs (1 - 1-dose 75+ series) 05/26/2018 DEPRESSION SCREENING 03/19/2024 COVID-19 VACCINE ( - 2023-2 5 season) 2024 INFLUENZA VACCINE (#1) 2024 HEPATITIS B VACCINE Aged Out No longe r eligible based on patient's age to complete this topic HIB VACCINE Aged Out No longer eligi ble based on patient's age to complete this topic HPV VACCINE Aged Out No longer eligi ble based on patient's age to complete this topic MENINGOCOCCAL (Group B) VACC INE SHARED DECISION-MAKING Aged Out No longer eligibl e based on patient's age to complete this topic MENINGOCOCCAL GROUPS A/C/Y/W VACCINE Aged Out No longer eligible b ased on patient's age to complete this topic Insurance MEDICARE [facility] Address: [address] [place] [address]
--- OUTSIDE RECORDS SUMMARY | 2025-01-12 16:59 | XMS_ITS | Encounter Summary ---
Author Organization [facility] Address [address] [place] [address] Care Team Providers Care Summer Child Caregiver Name Role Phone Unavailable Primary Care Provider Unavailabl e Encounter Details Date Type Department Care Team (Late st Contact Info) Description 05/21/2019 Lab Requisition [facility] [address] [place] [id number] [place] [address] Social History Tobacco Use Types Packs/Day Years Used Date Smoking Tobacco: Never Assessed Comments Unknown Sex and Gender Information Value Date Recorded Sex Assigned at Not on file Legal Sex Female 6:00 PM CDT Gender Identity Not on file Sexual Orientation Not on file documented as of this encounter Plan of Treatment Not on file documented as of this encounter Procedures Procedure Name Priority Date/Time Associated Diagnosis Comments DERMATOPATHOLOGY Routine 05/20/2019 12:0 0 AM [facility] documented in this encounter Results * DERMATOPATHOLOGY (05/20/2019 12:00 AM [facility]) Case Report Dermatopathology Report Case: [id number] Authorizing Provider: David Luna MD Collected: 05/20/2019 12:00 AM Ordering Location: [facility] Received: 05/21/2019 01:25 PM Pathologist: Merly Adler MD Specimen: Skin, left central cheek 0 2:10 PM [facility] Final Diagnosis Specimen A. SKIN, left central cheek: SEBORRHEIC KERATOSIS (L82.1) 0 2:10 PM [facility] at [address] [facility] Clinical History R/O dysplastic nevus. 0 2:10 PM [facility] Gross Description Specimen A: Received is one formalin filled container labeled with the patient's name and designated left central cheek. The specimen consists of a shave biopsy measuring [id number]. Jar 0. 0 2:10 PM [facility] Microscopic Description Specimen A. SKIN, left central cheek: Sections show an acanthotic lesion composed of relatively uniform keratinocytes. There is hyperkeratosis and pseudo horn cysts formation. 0 2:10 PM [facility] Disclaimer An external and internal positive and negative controls are appropriate for the histochemical, immunohistochemical and immunofluorescence stain(s) in this case (if any), except where stated explicitly. The performance characteristics of the stain(s) cited in this report were developed and its performance characteristic determined by the Dermatopathology Laboratory at [facility], directed by Dr. Carmen James. These tests need not be, and therefore are not, approved by the [place] Food and Drug Administration. The tests are used for clinical purposes. Billing Codes Specimen Charges Stain Charges 49015 1 0 2:10 PM [facility] Embedded Images 0 2:10 PM [facility] Pathology/Cytolog y TISSUE SPECIMEN FROM SKIN / Unknown 05/20/2019 05/21/2019 1:25 PM [facility] David Luna MD LAB - PATHOLOGY/CYTOLOGY ORD ERABLES Final Result DERMATOPATHOLOGY LABORATORY [facility] - Department of Dermatology [address] [place] [address], [address] [place] [address], [facility] [phone] documented in this encounter Visit Diagnoses Not on filedocumented in this encounter
== END 2025-01-12 15:31 | disposition home or self-care (01) ==
LOC: ANHFOHIMG 15:32
DX: Z12.31 Encounter for screening mammogram for malignant neoplasm of breast (principal)
CPT/HCPCS: 77063; 77067